=== PATIENT | male | born 1985 | race American Indian/Alaskan Native ===

== ENCOUNTER 2019-06-19 13:29 | Emergency (ER) | payer MEDICAID ==
--- NOTE | 2019-06-19 13:37 | Emergency Department Report ---
Blank Doc - Documentation Documentation: 34-year-old male that presents with SZ. This initial assessment/diagnostic orders/clinical plan/treatment(s) is/are subject to change based on patient's health status, clinical progression and re- assessment by fellow clinical providers in the ED. Further treatment and workup at subsequent clinical providers discretion. Patient/guardians urged not to elope from the ED as their condition may be serious if not clinically assessed and managed. Initial orders include: 1- Patient sent to MAIN ED for further evaluation and treatment 2- labs 3- CT head
[2019-06-19 14:48] LABS: Alanine Aminotransferase 30 units/L (7-56); Albumin 4.2 g/dL (3.9-5); BUN/Creatinine Ratio 10; Basophils % (Auto) 0.7 % (0.0-1.8); Blood Urea Nitrogen 11 mg/dL (9-20); Calcium 8.8 mg/dL (8.4-10.2); Eosinophils # (Auto) 0.1 K/mm3 (0.0-0.4); Eosinophils % (Auto) 1.9 % (0.0-4.3); Hematocrit 42.6 % (35.5-45.6); Hemoglobin 13.7 gm/dl (11.8-15.2); Hemolysis Index 4; Lymphocytes # (Auto) 1.3 K/mm3 (1.2-5.4); Lymphocytes % (Auto) 26.6 % (13.4-35.0); Mean Corpuscular HGB Conc 32 % (32-34); Mean Corpuscular Volume 84 fl (84-94); Monocytes # (Auto) 0.7 K/mm3 (0.0-0.8); Monocytes % (Auto) 13.6 % (0.0-7.3); Platelet Count 208 K/mm3 (140-440); Red Blood Count 5.09 M/mm3 (3.65-5.03)
--- NOTE | 2019-06-19 15:17 | Cat Scan Report ---
CT BRAIN: 06/19/2019 INDICATION / CLINICAL INFORMATION: Seizure. Prior history of trauma. COMPARISON: 04/03/2009 FINDINGS: BRAIN/INTRACRANIAL STRUCTURES: Unenhanced CT images of the brain were obtained. Again seen is extensive chronic encephalomalacia involving the left frontal lobe, right inferior fron royal lobe, and high right frontal lobe parenchyma, as well as the left anterior temporal lobe. The dis tribution of these areas of encephalomalacia would be compatible with a prior history of head trauma and brain injury. This pattern has not changed when compared to the prior exam. Underlying diffuse cerebral atrophy is present, also unchanged. There is no evidence of acute abnormality. There is no evidence of hemorrhage. There are no abnormal extra-axial fluid collections. EXTRACRANIAL STRUCTURES: Unremarkable. IMPRESSION: No acute abnormality. Extensive chronic changes consistent with prior brain injury, stable when comp ared to a prior exam from 2008. All CT scans at this location are performed using dose reduction to ALARA by means of automated expos ure control. Signer Name: Dinesh Umanzor MD Signed: 06/19/2019 3:13 PM Workstation Name: [id number]
[2019-06-19] MEDS ORDERED: levETIRAcetam 1000 MG/NS 0.75% 1,000 MG/100 ML BAG IV ONE (15:53)
[2019-06-19] MEDS ORDERED: SODIUM CHLORIDE 0.9% 1000 ML 1,000 ML IV ONE (15:57)
[2019-06-19] MEDS ORDERED: ONDANSETRON 4 MG/2 ML INJ IV ONE (15:57)
--- NOTE | 2019-06-19 15:57 | Emergency Department Report ---
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 Patient is taking Topamax, clonazepam and Risperdal. Patient brought to the emergency room by his father for evaluation of 2 episode of seizure one in the morningand another one this afternoon. Patient father describes seizure as generalized tonic-clonic seizure with postictal confusion. Patient is also complaining of headache. Mother stated that patient is compliant with his medication. MD Complaint: seizure -: Sudden Description of Episode: loss of consciousness, tonic-clonic movement Witnessed:: Yes Trauma: Yes (head) Seizure History: known seizure disorder, compliant with medication Place: home Associated Symptoms: denies other symptoms Treatments Prior to Arrival: none - Related Data Allergies Allergy/AdvReac Type Severity Reaction Status Date / Time Penicillins Allergy DECREASE Unverified 01/18/15 07:24 THE RESPONE OF HIS SEIZURE MEDICATION ED Review of Systems ROS: Stated complaint: SEIZURE Other details as noted in HPI Comment: All other systems reviewed and negative Constitutional: denies: chills, fever Respiratory: denies: cough, shortness of breath, SOB with exertion Cardiovascular: denies: chest pain, palpitations Gastrointestinal: denies: abdominal pain, nausea Neurological: headache ED Past Medical Hx - Past Medical History Hx Seizures: Yes Additional medical history: traumatic brain injury - Surgical History Additional Surgical History: brain - Social History Smoking Status: Never Smoker Substance Use Type: None ED Physical Exam - General Limitations: No Limitations General appearance: alert, in no apparent distress - Head Head exam: Present: atraumatic, normocephalic, normal inspection - Eye Eye exam: Present: normal appearance, PERRL - ENT ENT exam: Present: normal exam, normal orophraynx, mucous membranes moist - Neck Neck exam: Present: normal inspection, full ROM. Absent: tenderness, meningismus, lymphadenopathy, thyromegaly - Respiratory Respiratory exam: Present: normal lung sounds bilaterally - Cardiovascular Cardiovascular Exam: Present: regular rate, normal rhythm, normal heart sounds - GI/Abdominal GI/Abdominal exam: Present: soft, normal bowel sounds. Absent: distended, tenderness, guarding, rebound, rigid, organomegaly, mass, bruit, pulsatile mass, hernia - Extremities Exam Extremities exam: Present: normal inspection, full ROM, normal capillary refill. Absent: tenderness, pedal edema, joint swelling, calf tenderness - Back Exam Back exam: Present: normal inspection, full ROM. Absent: CVA tenderness (R), CVA tenderness (L) - Neurological Exam Neurological exam: Present: alert, oriented X3, CN II-XII intact, normal gait, reflexes normal - Psychiatric Psychiatric exam: Present: normal mood - Skin Skin exam: Present: warm, intact, normal color ED Course Vital Signs 06/19/19 06/19/19 06/19/19 13:36 17:02 17:15 Temperature 98.5 F Pulse Rate 109 H Respiratory 18 Rate Blood Pressure 117/60 115/68 O2 Sat by Pulse 96 99 100 Oximetry 06/19/19 06/19/19 06/19/19 17:30 17:45 18:00 Temperature Pulse Rate Respiratory Rate Blood Pressure 110/65 117/68 116/64 O2 Sat by Pulse 44 L 98 98 Oximetry 06/19/19 06/19/19 06/19/19 18:15 18:30 18:45 Temperature Pulse Rate Respiratory Rate Blood Pressure 108/62 124/57 110/63 O2 Sat by Pulse 97 98 98 Oximetry 06/19/19 06/19/19 06/19/19 19:00 19:15 19:30 Temperature Pulse Rate Respiratory Rate Blood Pressure 111/66 112/67 109/59 O2 Sat by Pulse 95 99 97 Oximetry ED Medical Decision Making - Lab Data Result diagrams: 06/19/19 14:05 06/19/19 14:05 - Medical Decision Making The patient is 34 years old male with 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 Patient is taking Topamax, clonazepam and Risperdal. Patient brought to the emergency room by his father for evaluation of 2 episode of seizure one in the morning and another one this afternoon. Patient father describes seizure as generalized tonic-clonic seizure with postictal confusion. Patient is also complaining of headache. Mother stated that patient is compliant with his medication. Labs reviewed and is unremarkable. CT brain is negative for acute finding. Patient observed in the ER no seizure activity noticed. Patient received Keppra 1 g IV. I will start patient on Keppra 500 mg twice a day and strongly advised the family to follow-up with his neurologist in the next 2-3 days and to return to the ER if patient develops any new symptoms. Critical care attestation.: If time is entered above; I have spent that time in minutes in the direct care of this critically ill patient, excluding procedure time. ED Disposition Clinical Impression: Seizure Disposition: DC-01 TO HOME OR SELFCARE Is pt being admited?: No Condition: Stable Instructions: Recurrent Seizures Adult (ED) Referrals: RAFFAELE CALLAHAN MD [Primary Care Provider] - 3-5 Days
[2019-06-19 18:16] LABS: Amphetamine Screen,Urine PRESUMPTIVE NEGATIVE; Benzodiazepines Screen,Urine PRESUMPTIVE NEGATIVE; Cannabinoid Screen,Urine PRESUMPTIVE NEGATIVE; Cocaine Screen,Urine PRESUMPTIVE NEGATIVE; Methadone Screen,Urine PRESUMPTIVE NEGATIVE; Opiate Screen,Urine PRESUMPTIVE NEGATIVE
[2019-06-19 18:18] LABS: Bacteria,Urine 1+ /HPF (Negative); Bilirubin,Urine NEG (Negative); Blood,Urine NEG (Negative); Color,Urine Yellow (Yellow); Mucus,Urine FEW /HPF; Protein,Urine <15 mg/dL mg/dL (Negative); RBC,Urine < 1.0 /HPF (0.0-6.0); Urobilinogen,Urine < 2.0 mg/dL (<2.0); WBC,Urine < 1.0 /HPF (0.0-6.0)
[2019-06-19 21:03] VITALS: BP 103/59
== END 2019-06-19 21:29 | disposition home or self-care (01) ==
LOC: ED 13:29
DX: G40.409 Other generalized epilepsy and epileptic syndromes, not intractable, without status epilepticus (principal); R51 Headache
CPT/HCPCS: 36415; 70450; 80053; 80307; 81001; 85025; 96365; 96366; 96375; 99284; J1953; J2405; J7030; 80320; G0480

== ENCOUNTER 2022-05-10 17:37 | Emergency (ER) | payer MEDICAID ==
[2022-05-10] MEDS ORDERED: SODIUM CHLORIDE 0.9% 1000 ML 1,000 ML IV ONE (17:59)
[2022-05-10] MEDS ORDERED: levETIRAcetam 2,000 MG in DEXTROSE 5% IN WATER 100 ML IV ONE (18:00)
--- NOTE | 2022-05-10 18:24 | Emergency Department Report ---
ED General Adult HPI - General Chief complaint: Seizure Stated complaint: SEIZURE PUI?: No Time Seen by Provider: 05/10/22 17:54 Source: patient, EMS Mode of arrival: Stretcher Limitations: No Limitations - History of Present Illness Initial comments: This is a 37-year-old male brought in by EMS with concerns of witnessed seizure which patient has a history of seizure as well. At the time of my evaluation, patient is still AO x2 and father is at bedside. Father stats patient is taking risperidone 0.5mg and topiramate 200mg and denies any recent changes of medications. Father does not know if the patient is taking Keppra. At the time my evaluation patient denies any discomfort. Severity scale (0 -10): 0 - Related Data Previous Rx's Medication Instructions Recorded Last Taken Type levETIRAcetam [Keppra TAB] 500 mg PO BID #60 tablet 06/19/19 Unknown Rx levETIRAcetam [Keppra TAB] 500 mg PO BID 15 Days #30 tablet 05/10/22 Unknown Rx Allergies Allergy/AdvReac Type Severity Reaction Status Date / Time Penicillins Allergy DECREASE Verified 05/10/22 17:49 THE RESPONE OF HIS SEIZURE MEDICATION ED Review of Systems ROS: Stated complaint: SEIZURE Other details as noted in HPI Comment: All other systems reviewed and negative Constitutional: no symptoms reported, see HPI Eyes: as per HPI ENT: as per HPI Respiratory: no symptoms reported, see HPI Cardiovascular: as per HPI Endocrine: no symptoms reported, see HPI Gastrointestinal: as per HPI Musculoskeletal: as per HPI Skin: as per HPI Neurological: as per HPI Psychiatric: as per HPI Hematological/Lymphatic: as per HPI ED Past Medical Hx - Past Medical History Previous Medical History?: Yes Hx Seizures: Yes Additional medical history: traumatic brain injury - Surgical History Additional Surgical History: brain - Social History Smoking Status: Never Smoker Substance Use Type: None - Medications Home Medications: Home Medications Medication Instructions Recorded Confirmed Last Taken Type levETIRAcetam [Keppra TAB] 500 mg PO BID #60 tablet 06/19/19 Unknown Rx levETIRAcetam [Keppra TAB] 500 mg PO BID 15 Days #30 tablet 05/10/22 Unknown Rx ED Physical Exam - General Limitations: Altered Mental Status General appearance: alert, in no apparent distress - Head Head exam: Present: atraumatic, normocephalic, normal inspection - Eye Eye exam: Present: normal appearance, PERRL, EOMI Pupils: Present: normal accommodation - ENT ENT exam: Present: normal exam, mucous membranes moist - Neck Neck exam: Present: normal inspection, full ROM - Respiratory Respiratory exam: Present: normal lung sounds bilaterally - Cardiovascular Cardiovascular Exam: Present: regular rate, normal rhythm, normal heart sounds - GI/Abdominal GI/Abdominal exam: Present: soft - Extremities Exam Extremities exam: Present: normal inspection, full ROM, normal capillary refill - Back Exam Back exam: Present: normal inspection, full ROM - Neurological Exam Neurological exam: Present: alert, altered, CN II-XII intact, other (Patient is AOx2) - Psychiatric Psychiatric exam: Present: normal affect, normal mood ED Course Vital Signs 05/10/22 05/10/22 05/10/22 17:37 18:02 18:15 Temperature 98.0 F Pulse Rate 156 H 136 H Respiratory 14 25 H Rate Blood Pressure 119/62 Blood Pressure 160/80 [Left] O2 Sat by Pulse 97 95 95 Oximetry 05/10/22 18:28 Temperature Pulse Rate Respiratory 26 H Rate Blood Pressure Blood Pressure [Left] O2 Sat by Pulse 97 Oximetry - Reevaluation(s) Reevaluation #1: 05/10/22 22:07 PER FATHER WHO IS AT THE BEDSIDE, 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 PATIENT ON MY REEVALUATION IS AOX 1 STILL AND FATHER STATES THAT'S HIS BASELINE. ED Medical Decision Making - Lab Data Result diagrams: 05/10/22 19:02 05/10/22 19:02 - EKG Data -: EKG Interpreted by Me Rate: tachycardia - EKG Data 05/10/22 18:24 EKG at 1801 revealed sinus tachycardia at [address] segment elevation or depression no Wellens wave. There is possible left atrial enlargement. Critical care attestation.: If time is entered above; I have spent that time in minutes in the direct care of this critically ill patient, excluding procedure time. ED Disposition Clinical Impression: Seizure Disposition: 01 HOME / SELF CARE / HOMELESS Is pt being admited?: No Does the pt Need Aspirin: No Condition: Stable Instructions: Seizure, Adult, [id number] Additional Instructions: Make a follow-up appointment with your primary care provider to be seen within 3 days for further outpatient evaluation. In the meantime start taking your Keppra twice a day. Return to the ER if you have new seizures. Prescriptions: levETIRAcetam [Keppra TAB] 500 mg PO BID 15 Days #30 tablet Referrals: GALEN PENA MD [Primary Care Provider] - 3-5 Days Time of Disposition: 22:12
--- NOTE | 2022-05-10 18:34 | XRay Report ---
CHEST 1 VIEW 05/10/2022 5:20 PM INDICATION / CLINICAL INFORMATION: seizre. COMPARISON: None available. FINDINGS: SUPPORT DEVICES: None. HEART / MEDIASTINUM: No significant abnormality. LUNGS / PLEURA: No significant pulmonary or pleural abnormality. No pneumothorax. ADDITIONAL FINDINGS: No significant additional findings. IMPRESSION: No acute abnormality. Signer Name: Carter Fitzpatrick MD Signed: 05/10/2022 6:30 PM Workstation Name: [id number]
[2022-05-10 19:29] LABS: Hemoglobin 13.6 gm/dl (11.8-15.2); Mean Corpuscular HGB Conc 32 % (32-34); Mean Corpuscular Volume 85 fl (84-94); Platelet Count 214 K/mm3 (140-440); Red Blood Count 5.05 M/mm3 (3.65-5.03)
[2022-05-10 20:26] LABS: Alanine Aminotransferase 22 units/L (7-56); Albumin 4.9 g/dL (3.9-5); BUN/Creatinine Ratio 13; Blood Urea Nitrogen 14 mg/dL (9-20); Calcium 9.8 mg/dL (8.4-10.2); Hemolysis Index 88
[2022-05-10] MEDS ORDERED: LACTATED RINGERS 2,000 ML IV ONE (20:32)
--- NOTE | 2022-05-10 21:17 | Cat Scan Report ---
CT HEAD WITHOUT CONTRAST INDICATION / CLINICAL INFORMATION: SEIZURE. TECHNIQUE: All CT scans at this location are performed using CT dose reduction for ALARA by means of automated exposure control. COMPARISON: Noncontrast head CT 06/19/2019 FINDINGS: HEMORRHAGE: None. EXTRA-AXIAL SPACES: Normal in size and morphology for the patient's age. VENTRICULAR SYSTEM: Normal in size and morphology for the patient's age. CEREBRAL PARENCHYMA: Redemonstration of encephalomalacia within the bilateral frontal lobes as well a s the left greater than right anterior poles of the temporal lobes. Similar diffuse cerebral atrophy. MIDLINE SHIFT / HERNIATION: None. CEREBELLUM / BRAINSTEM: No significant abnormality. ORBITS: Normal as visualized. SOFT TISSUES: No significant abnormality. SKULL: No significant abnormality. PARANASAL SINUSES / MASTOID AIR CELLS: Normal as visualized. ADDITIONAL FINDINGS: None. IMPRESSION: 1. Extensive encephalomalacia within the frontal and temporal lobes related to prior traumatic brain injury. No significant interval change. 2. No CT evidence of an acute intracranial abnormality. Signer Name: Milo Yeung MD Signed: 05/10/2022 9:13 PM Workstation Name: [id number]
[2022-05-10 22:46] LABS: Mucus,Urine FEW /HPF
[2022-05-10 22:47] LABS: Color,Urine Colorless (Yellow)
[2022-05-10 22:53] LABS: Amphetamine Screen,Urine PRESUMPTIVE NEGATIVE; Benzodiazepines Screen,Urine PRESUMPTIVE NEGATIVE; Cannabinoid Screen,Urine PRESUMPTIVE NEGATIVE; Cocaine Screen,Urine PRESUMPTIVE NEGATIVE; Methadone Screen,Urine PRESUMPTIVE NEGATIVE; Opiate Screen,Urine PRESUMPTIVE NEGATIVE
[2022-05-11 07:22] VITALS: BP 124/84
--- NOTE | 2022-05-11 09:42 | Electrocardiograph Report ---
[facility] Test Date: 2022-05-10 Test Time: 18:01:22 Pat Name: YANIRA LAND JR Department: Room: Gender: M Computer Engineering Technologist: : 1985 Requested By: GREGORY STONE Order Number: [id number] Reading MD: Sunny Rao Measurements Intervals Braggs Rate: 132 P: 30 MD: 154 QRS: 9 QRSD: 63 T: 13 QT: 273 QTc: 406 Interpretive Statements Sinus tachycardia Probable left atrial enlargement No previous ECG available for comparison Electronically Signed On 05-11-2022 9:42:25 EDT by Sunny Rao
== END 2022-05-11 | disposition home or self-care (01) ==
LOC: ED 17:37
DX: R56.9 Unspecified convulsions (principal); Z88.0 Allergy status to penicillin
CPT/HCPCS: 36415; 70450; 71045; 80053; 80307; 81001; 82140; 82550; 83735; 85027; 93005; 96365; 96366; 99285; J1953; J7030; J7060; J7120; 99284